=== PATIENT | male | born 1945 | race Hispanic/Latino ===

== ENCOUNTER 2017-12-21 14:32 | Observation (INO) | payer MEDICARE, BC ==
--- NOTE | 2017-12-21 15:26 | RAD ---
CHEST 1 VIEW: Date: 12/21/17 COMPARISON: 03/12/16. HISTORY: Pain. FINDINGS: Slight elongation of aorta. Normal cardiac silhouette. Pulmonary vessels and hilum are normal. Costop hrenic angles are clear. No masses or consolidation. No pneumothorax or osseous abnormalities. IMPRESSION: No acute cardiopulmonary process. POS: [facility]
[2017-12-21 15:34] LABS: #Eosinphils 0.1 thou/uL (0.0-0.7); #Lymphocytes 2.7 thou/uL (1.20-3.40); #Monocytes 0.9 thou/uL (0.11-0.59); #Neutrophils 4.5 thou/uL (1.40-6.50); %Basophils 0.5 % (0.0-1.0); %Eosinophils 1.5 % (0.0-10.0); %Lymphocytes 32.8 % (21.0-51.0); %Monocytes 10.3 % (0.0-10.0); %Neutrophils 54.9 % (42.0-75.0); Hemoglobin 14.6 g/dL (14.0-18.0); Mean Corpuscular HGB CONC 33.6 g/dL (32.0-36.0); Mean Corpuscular Hemoglobin 31.7 pg (27.0-31.0); Mean Corpuscular Volume 94.5 fL (78.0-98.0); Mean Platelet Volume 7.4 fL (7.4-10.4); Platelet Count 257 thou/uL (130-400); RBC Distribution Width 11.8 % (11.5-14.5); Red Blood Cell (RBC) Count 4.62 mill/uL (4.70-6.10); White Blood Cell (WBC) Count 8.2 thou/uL (4.8-10.8)
[2017-12-21 16:00] LABS: ALT (SGPT) 20 U/L (8-55); AST (SGOT) 20 U/L (5-34); Albumin 4.6 g/dL (3.4-4.8); Alkaline Phosphatase 73 U/L (40-150); Anion Gap 12 mmol/L (10-20); BUN (Urea Nitrogen) 15 mg/dL (8.4-25.7); Bilirubin, Total 0.9 mg/dL (0.2-1.2); CK (CPK) 116 U/L (30-200); Calc. Creatinine Clearance 0 mL/min (70-130); Calcium 10.2 mg/dL (7.8-10.44); Carbon Dioxide 32 mmol/L (23-31); Chloride 99 mmol/L (98-107); Estimated GFR-MDRD 72; Globulin 2.8 g/dL (2.4-3.5); Glucose 86 mg/dL (80-115); Lipase 41 U/L (8-78); Potassium 3.8 mmol/L (3.5-5.1); Protein, Total 7.4 g/dL (5.8-8.1); Sodium 139 mmol/L (136-145)
[2017-12-21 16:02] LABS: CKMB 1.1 ng/mL (0-6.6); Troponin I Less than 0.010 ng/mL (< 0.028)
[2017-12-21] MEDS ORDERED: Ondansetron PF 4 MG/2 ML Vial IVP PRN ×2 (17:02)
[2017-12-21] MEDS ORDERED: Bisacodyl 5 MG TAB PO PRN ×2 (17:02)
[2017-12-21] MEDS ORDERED: Acetaminophen 500 MG TAB PO PRN (17:02)
[2017-12-21] MEDS ORDERED: Acetaminophen 325 MG TAB PO PRN (17:02)
[2017-12-21] MEDS ORDERED: Nitroglycerin 0.4 MG TAB (25 Tab Bottle) SL PRN (17:02)
[2017-12-21] MEDS ORDERED: Benzonatate 100 MG CAP PO PRN (17:02)
[2017-12-21] MEDS ORDERED: HYDROcodone/Acetaminophen 5/325 mg Tablet PO PRN (17:02)
[2017-12-21] MEDS ORDERED: cloNIDine 0.1 MG TAB PO PRN (17:02)
[2017-12-21] MEDS ORDERED: Bisacodyl 10 MG SUPP PR PRN (17:02)
[2017-12-21] MEDS ORDERED: hydrALAZINE 20 MG/ML VIAL SLOW IVP PRN (17:02)
[2017-12-21] MEDS ORDERED: Diabetic Tussin 200 MG/10 ML UDCUP PO PRN (17:02)
[2017-12-21] MEDS ORDERED: Senokot S 8.6-50 MG TAB PO PRN ×2 (17:02)
[2017-12-21] MEDS ORDERED: Enoxaparin Sodium 80 MG/0.8 ML SYRINGE ONE (17:41)
[2017-12-21 19:42] LABS: Troponin I Less than 0.010 ng/mL (< 0.028)
[2017-12-21 20:42] VITALS: BMI 29.5
[2017-12-21] MEDS: Famotidine 20 MG TAB PO SCH (21:15)
[2017-12-21] MEDS ORDERED: Linaclotide [Linzess] 145 MCG PO PRN (21:26)
[2017-12-21 21:29] LABS: Troponin I Less than 0.010 ng/mL (< 0.028)
[2017-12-21] MEDS ORDERED: Dextrose 50% Abboject 50 ML SYRINGE SLOW IVP PRN (21:33)
[2017-12-21] MEDS ORDERED: Dextrose 5% in Water 1,000 ML IV PRN (21:33)
[2017-12-21] MEDS ORDERED: HumaLOG 300 UNITS/3 ML VIAL SC PRN ×2 (21:33)
--- NOTE | 2017-12-21 22:49 | HP ---
DATE OF ADMISSION: 12/21/2017 PRIMARY CARE PHYSICIAN: Joann Rosenberg. CHIEF COMPLAINT: Chest pain. HISTORY OF PRESENT ILLNESS: Mr. Hood is a very pleasant 72-year-old male with history of pitt ry artery disease, status post 1 stent in 2016, who presented to the emergency room with complaints o f chest pressure for 2 days. History is mainly obtained by the patient himself and electronic medica l records have been reviewed. This has been discussed with admitting ER physician. Mr. Hood' reports that for the last 2 days, he has been having on and off sharp chest pain, loca angely on both sides of the sternum in the lower region associated with some shortness of breath and pal pitation and diaphoresis as well as dizziness. He is compliant with his medication, but he missed hi s last appointment with his finishing pan operator, Dr. Olsen. He denies any recent illnesses. He denies a ny excessive shortness of breath or dyspnea on exertion. Denies any orthopnea or PND. In the emergency room upon presentation, he was hemodynamically stable. His blood pressure was 126/8 0 with a pulse of 64, saturating 98% on room air. Physical examination was unremarkable. A 12-lead EKG was within normal limits. Chest x-ray was negative for any acute changes. His cardiac enzyme wa s checked and CK-MB and troponin were unremarkable as well as a normal BNP. He did have an elevated D-dimer 0.52, but because he has an IODINE allergy, a CT angio could not be ordered. Instead, he was given a therapeutic dose of Lovenox at 80 mg x1 and is now being admitted for further workup of his chest pain. The patient has had a negative stress test in 03/2016 at which time he has also presented with chest pain. PAST MEDICAL HISTORY: 1. Coronary artery disease, status post stenting in 2017. 2. History of H. pylori gastritis. 3. Hypertension. 4. Dyslipidemia. 5. Diabetes, on oral hypoglycemics. 6. Gastroesophageal reflux disease. PAST SURGICAL HISTORY: 1. Back surgery. 2. Stent placement. PSYCHIATRIC HISTORY: No anxiety, no depression. SOCIAL HISTORY: He denies any drug, tobacco, or alcohol abuse. Lives with his . CODE STATUS: FULL CODE. We have discussed with the patient. ALLERGIES: IODINE. FAMILY HISTORY: Significant for hypertension in both his parents. His father also had heart trouble in his 70s. HOME MEDICATIONS: As follows, aspirin 325 mg daily, latanoprost eyedrops at bedtime, fluticasone 2 s prays daily, atorvastatin 80 mg daily, Toprol-XL 100 mg daily, Linzess 145 mcg daily a.c. p.r.n., gilmar glitazone/metformin 15/850 p.o. b.i.d., and Viagra 100 mg p.r.n. REVIEW OF SYSTEMS: A 12-point review of systems was done and is negative except for those mentioned in the history and physical. LABORATORY AND DIAGNOSTIC DATA: CBC is unremarkable. D-dimer 0.52. Serum chemistries unremarkable. Cardiac enzymes, troponin less than 0.010 x2, CK-MB normal at 1.1. Creatine kinase total normal at 116. BNP at 38. Lipase normal. Chest x-ray by my review has no evidence to suggest pleural effusi on, edema, or infiltrate. Twelve lead EKG by my review shows normal sinus rhythm without any acute S T or T-wave changes. No arrhythmia was noticed. PHYSICAL EXAMINATION: VITAL SIGNS: Upon presentation, heart rate 86, blood pressure 126/80, respirations 16, saturating 98 % on room air, temperature 97.8. GENERAL: No acute distress, awake, alert, oriented x3. HEENT: Mucous membrane is moist and pink. No oropharyngeal exudate or erythema. Head is normocepha lic, atraumatic. Pupils are equal, reactive to light and accommodation. Extraocular movements are intact. NECK: Supple without any lymphadenopathy, JVD or bruit. CHEST: Clear to auscultation without any wheezing, rales, or rhonchi. CARDIOVASCULAR: Rate and rhythm are regular without any murmur, rubs, or gallops. ABDOMEN: Soft, nontender, nondistended, positive bowel sounds. EXTREMITIES: Free of any cyanosis, clubbing, or edema. NEUROLOGIC: Nonfocal. SKIN: Free of any new rashes or bruises. Feel warm and dry to touch. PSYCHIATRIC: Normal affect. IMPRESSION AND PLAN: 1. Chest pain, etiology unclear at this time, but acute coronary syndrome will definitely need to be rule out and the patient with history of coronary artery disease and stenting. His symptoms are torri te concerning for acute coronary syndrome. We will obtain nuclear medicine stress test as cardiac en zymes are unremarkable with a normal EKG. We will consult his finishing pan operator, Dr. Olsen in the morn ing. Also given his elevated D-dimer, VQ scan will be done. The patient is IODINE allergy, so canno t undergo CT angio. He has already received a dose of Lovenox at therapeutic levels and we will hold off on further dosing for now. Continue with aspirin and beta dexter at this time. The patient re ports that he was taken off the Plavix after being on it for sometime. He will be admitted to teleme try unit currently under observation status. 2. Diabetes mellitus, diet controlled. We will resume his home medication and add insulin sliding s marvin for better control. Avoid hypoglycemia as the patient most likely will be n.p.o. after midnight for cardiology evaluation in case he needs cardiac catheterization. 3. History of coronary artery disease, status post stenting. Continue aspirin, statin, and beta-blo cker for now. 4. History of gastroesophageal reflux disease. The patient's symptoms can be secondary to gastritis . He has history of Helicobacter pylori gastritis and reports that his symptoms are well controlled with Zantac. We will continue with Pepcid b.i.d. while he is in the hospital for now. 5. Code status: FULL CODE. Discussed with the patient. 6. Deep venous thrombosis and gastrointestinal prophylaxis and p.r.n. medication orders. 7. History of hypertension, currently controlled. We will add home medications and put him on p.r.n . medications as well. DISPOSITION: Mr. Hood is currently being admitted under observation status to rule out ACS. Fu rther management will depend upon his clinical course.
[2017-12-22 05:38] LABS: #Eosinphils 0.2 thou/uL (0.0-0.7); #Lymphocytes 2.4 thou/uL (1.20-3.40); #Monocytes 0.7 thou/uL (0.11-0.59); #Neutrophils 3.3 thou/uL (1.40-6.50); %Basophils 0.5 % (0.0-1.0); %Eosinophils 3.5 % (0.0-10.0); %Lymphocytes 35.3 % (21.0-51.0); %Monocytes 10.7 % (0.0-10.0); %Neutrophils 49.9 % (42.0-75.0); Hemoglobin 12.5 g/dL (14.0-18.0); Mean Corpuscular HGB CONC 32.1 g/dL (32.0-36.0); Mean Corpuscular Hemoglobin 30.5 pg (27.0-31.0); Mean Corpuscular Volume 95.1 fL (78.0-98.0); Mean Platelet Volume 7.6 fL (7.4-10.4); Platelet Count 233 thou/uL (130-400); RBC Distribution Width 11.8 % (11.5-14.5); Red Blood Cell (RBC) Count 4.09 mill/uL (4.70-6.10); White Blood Cell (WBC) Count 6.7 thou/uL (4.8-10.8)
[2017-12-22 06:13] LABS: Anion Gap 11 mmol/L (10-20); BUN (Urea Nitrogen) 13 mg/dL (8.4-25.7); Calc. Creatinine Clearance 87 mL/min (70-130); Calcium 9.3 mg/dL (7.8-10.44); Carbon Dioxide 31 mmol/L (23-31); Chloride 102 mmol/L (98-107); Estimated GFR-MDRD 87; Glucose 92 mg/dL (80-115); Potassium 3.6 mmol/L (3.5-5.1); Sodium 140 mmol/L (136-145)
[2017-12-22] MEDS ORDERED: METFORMIN HCL PO SCH (08:00)
[2017-12-22] MEDS ORDERED: PIOGLITAZONE HCL PO SCH (08:00)
[2017-12-22] MEDS ORDERED: [UNRECOGNIZED DRUG - OTHER] PO SCH (08:00)
[2017-12-22] MEDS: Pioglitazone HCl 15 MG TAB PO SCH ×3 (08:30→11:02)
[2017-12-22] MEDS: metFORMIN 850 MG TAB PO SCH ×3 (08:30→11:02)
[2017-12-22] MEDS ORDERED: Enoxaparin Sodium 40 MG/0.4 ML SYRINGE SC SCH (09:00)
[2017-12-22] MEDS ORDERED: Aspirin 325 mg Enteric Coated Tablet PO SCH (09:00)
[2017-12-22] MEDS ORDERED: Fluticasone Propionate Nasal Spray 16 gm Bottle NASAL SCH (09:00)
[2017-12-22] MEDS ORDERED: ADENOSINE 60 MG/20 ML VIAL ONE (10:39)
[2017-12-22] MEDS: Famotidine 20 MG TAB PO SCH (10:57)
[2017-12-22 11:26] VITALS: BP 129/55; TEMP 98
--- NOTE | 2017-12-22 12:07 | NM ---
RADIONUCLIDE STRESS REST MYOCARDIAL PERFUSION SCAN WITH CT ATTENUATION CORRECTION AND SPECT IMAGING LEFT VENTRICULAR WALL MOTION EVALUAITON AND EJECTION FRACTION: History: Chest pain FINDINGS: Adenosine protocol. There is homogeneous uptake of radiotracer throughout the left ventricular myocar dium. No focal perfusion defect or reversibility. QGS analysis of gated SPECT images shows no focal w all motion abnormalities. Ejection fraction calculated at 56%. IMPRESSION: Normal myocardium perfusion scan. Normal LVEF. POS: [facility]
[2017-12-22] MEDS ORDERED: Latanoprost 0.005% Ophth Soln 2.5 ml Bottle EA EYE SCH (21:00)
[2017-12-22] MEDS ORDERED: Atorvastatin Calcium 40 MG TAB PO SCH (21:00)
--- NOTE | 2017-12-23 00:21 | DIS ---
DATE OF ADMISSION: 12/21/2017 DATE OF DISCHARGE: 12/22/2017 PRIMARY CARE PHYSICIAN: Joann Rosenberg PA-C CODE STATUS: Full. DISCHARGE DIAGNOSES: 1. Coronary artery disease with a negative stress test. 2. Diabetes mellitus 2. 3. Gastroesophageal reflux disease. PROCEDURES: A chest x-ray, which showed no acute process. Nuclear stress test which was negative with a 56% ejection fraction. REVIEW OF SYSTEMS: The patient was seen by me on discharge and denying any complaints. PHYSICAL EXAMINATION: VITAL SIGNS: Temperature 97.5, pulse 57, respirations 16, blood pressure 136/ 61. GENERAL: No acute distress. He is awake, alert, and oriented x3. HEENT: Mucous membranes are moist and pink. Head is normocephalic, atraumatic. Pupils are equal, reactive to light. Extraocular movements are intact. NECK: Supple, with no lymphadenopathy, JVD or bruit. CHEST: Clear to auscultation without any wheezing, rales or rhonchi. CARDIOVASCULAR: Regular without any murmur, rubs or gallops. ABDOMEN: Soft, nontender, nondistended. Positive bowel sounds. EXTREMITIES: Free of any cyanosis, clubbing, or edema. NEUROLOGIC: Nonfocal sensation. Pulses are intact to all four extremities. SKIN: Warm, dry, and intact. Denies no rashes or bruises seen. PSYCHIATRIC: Normal affect. HOSPITAL COURSE: This is a pleasant 72-year-old male who presented to the ED yesterday complaining of 2 days of chest pressure and sharp pain in the substernal region. The patient has a history of CAD with 1 stent placed in 2017. Patient reported at that time that the chest pain was associated with dizziness, palpitations or shortness of breath. Currently, when examined this morning, the patient denies any current chest pain, dizziness, palpitations or shortness of breath. Initially while in the ED, patient had a slightly elevated D-dimer and had a VQ scan ordered. The patient is currently asymptomatic, and has denied SOB during hospitalization. Dr. Bro and I discussed need for VQ scan and it was felt it could be deferred for now. The patient has remained stable. He denies any chest pain after the stress test and is anxious to return home. ALLERGIES: He has no allergies to any medications. MEDICATIONS: He will be discharged on his home medications, which includes aspirin 325 mg p.o. daily, atorvastatin 80 mg p.o. at bedtime, Flonase 2 sprays to each naris b.i.d., Latanoprost 0.05% 1 drop each eye at bedtime, Linzess 145 mcg p.o. daily, Toprol-XL 100 mg p.o. daily., pioglitazone and metformin at 15 mg/850 mg p.o. b.i.d. and Viagra 100 mg p.o. daily as needed. Discharge condition is stable. The patient will return home via private vehicle. FOLLOWUP: The patient will need to follow up with Joann Rosenberg PA-C PCP within 1 week and follow up with Dr. Olsen within the next 2 weeks. PEDROD
--- NOTE | 2017-12-25 13:10 | STRESS ---
Acquisition Time: 2017-12-22 08:58:08 Total Exercise Time: 00:04:00 Test Indications: CP, CAD Medications: Protocol: ADENOSINE Max HR: 086 BPM 57% of Pred: 150 BPM Max BP: 136/072 mmHG Max Work Load: 1.0 METS RESTING ECG: NORMAL SINUS RHYTHM AT 65 BPM SYMPTOMS: SHORTNESS OF BREATH NORMAL BP RESPONSE ECTOPY: NONE ECG STRESS: NO SIGNIFICANT CHANGES INTERPRETATION: AWAIT NUCLEAR IMAGES FOR DEFINITIVE DIAGNOSIS Confirmed by SUDARSHAN MCCARTHY ([id number]), assistant editor STEPHY REIS ([id number]) on 12/25/2017 1:10:00 PM Referred By: MD Jonatan LEVINE Confirmed By:SUDARSHAN MCCARTHY
--- NOTE | 2017-12-26 11:22 | EKG ---
Test Reason : Blood Pressure : / mmHG Vent. Rate : 064 BPM Atrial Rate : 064 BPM P-R Int : 172 ms QRS Dur : 090 ms QT Int : 406 ms P-R-T Axes : 009 -13 022 degrees QTc Int : 418 ms Normal sinus rhythm Normal ECG Confirmed by KATHY RIVERO, BIGG ([id number]), videotape editor GABBI HANSON ([id number]) on 12/26/2017 11:21:46 AM Referred By: Confirmed By:BIGG CHAVEZ MD
== END 2017-12-22 14:35 | disposition home or self-care (01) ==
LOC: ERS 14:32 → ERHOLD 18:03 → 2SW 20:37
PROVIDERS: ADMIT Internal Medicine; ATTEND Internal Medicine
DX: R07.9 Chest pain, unspecified (principal); I25.10 Atherosclerotic heart disease of native coronary artery without angina pectoris; E11.9 Type 2 diabetes mellitus without complications; K21.9 Gastro-esophageal reflux disease without esophagitis; Z79.899 Other long term (current) drug therapy
CPT/HCPCS: 71045; 78452; 80048; 80053 ×2; 80061; 82550; 82553; 82962 ×2; 83690; 83880; 84484 ×2; 85025 ×2; 85379; 93005; 93017; 96360; 96372; 97139; 99285; A9500; G0378 ×2; 36415; 36416; J0153; J1650

== ENCOUNTER 2019-06-18 11:52 | Emergency (ER) | payer MEDICARE, BC, OTHER ==
[2019-06-18 12:59] LABS: #Eosinphils 0.1 thou/uL (0.0-0.7); #Lymphocytes 2.2 thou/uL (1.20-3.40); #Monocytes 0.7 thou/uL (0.11-0.59); #Neutrophils 4.3 thou/uL (1.40-6.50); %Basophils 0.1 % (0.0-1.0); %Eosinophils 1.6 % (0.0-10.0); %Lymphocytes 30.4 % (21.0-51.0); %Monocytes 9.1 % (0.0-10.0); %Neutrophils 58.9 % (42.0-75.0); Mean Corpuscular HGB CONC 33.4 g/dL (32.0-36.0); Mean Corpuscular Hemoglobin 31.8 pg (27.0-31.0); Mean Corpuscular Volume 95.2 fL (78.0-98.0); Mean Platelet Volume 7.6 fL (7.4-10.4); Platelet Count 257 thou/uL (130-400); RBC Distribution Width 11.5 % (11.5-14.5); Red Blood Cell (RBC) Count 4.42 mill/uL (4.70-6.10); White Blood Cell (WBC) Count 7.3 thou/uL (4.8-10.8)
--- NOTE | 2019-06-18 13:18 | RAD ---
CHEST ONE VIEW PORTABLE: History: Shortness of breath Comparison: 12-21-17 FINDINGS: Heart size is within normal limits. The lungs are clear. No confluent pneumonia, overt edema, or pleu ral effusion. IMPRESSION: No significant acute intrathoracic disease. Stable from 12-21-17. POS: [facility]
[2019-06-18 13:21] LABS: ALT (SGPT) 33 U/L (8-55); AST (SGOT) 24 U/L (5-34); Albumin 4.5 g/dL (3.4-4.8); Alkaline Phosphatase 69 U/L (40-110); Anion Gap 14 mmol/L (10-20); BUN (Urea Nitrogen) 11 mg/dL (8.4-25.7); Bilirubin, Total 0.6 mg/dL (0.2-1.2); Calc. Creatinine Clearance 0 mL/min (70-130); Calcium 9.7 mg/dL (7.8-10.44); Carbon Dioxide 29 mmol/L (23-31); Chloride 99 mmol/L (98-107); Estimated GFR-MDRD 83; Globulin 2.6 g/dL (2.4-3.5); Glucose 159 mg/dL (83-110); Potassium 4.1 mmol/L (3.5-5.1); Protein, Total 7.1 g/dL (5.8-8.1); Sodium 138 mmol/L (136-145)
[2019-06-18 16:05] LABS: Troponin I Less than 0.010 ng/mL (< 0.028)
== END 2019-06-18 16:30 | disposition short-term general hospital (02) ==
LOC: ERS 11:52
DX: R06.02 Shortness of breath (principal); Z20.828 Contact with and (suspected) exposure to other viral communicable diseases; E11.9 Type 2 diabetes mellitus without complications; I10 Essential (primary) hypertension
CPT/HCPCS: 71045; 80053; 83880; 84484 ×2; 85025; 93005; 99285; U0002; 36415; 87635; U0003

== ENCOUNTER 2019-09-06 11:38 | Emergency (ER) | payer MEDICARE, BC, OTHER ==
[2019-09-07 12:50] LABS: SARS-CoV-2 MS2 Positive; SARS-CoV-2 N Gene Positive; SARS-CoV-2 S Gene Positive; SARS-CoV-2 orf1ab Positive
== END 2019-09-06 13:22 | disposition home or self-care (01) ==
LOC: ERS 11:38
DX: U07.1 COVID-19 (principal); E11.9 Type 2 diabetes mellitus without complications; I10 Essential (primary) hypertension
CPT/HCPCS: 99283; U0003; 87635

== ENCOUNTER 2019-09-08 11:59 | Emergency (ER) | payer MEDICARE, BC, OTHER ==
[2019-09-08] MEDS ORDERED: Dexamethasone 10 MG/ML VIAL ONE (12:51)
--- NOTE | 2019-09-08 12:54 | RAD ---
Portable frontal chest radiograph: 09/18/2019 COMPARISON: 06/18/2019 HISTORY: Cough, chest pain, chills, possible Covid FINDINGS: Lungs are clear. Heart and mediastinal contours appear within normal limits. IMPRESSION: No acute findings. If there is continued clinical concern for Covid pneumonia, follow-up chest x-ray or CT suggested.
== END 2019-09-08 14:32 | disposition home or self-care (01) ==
LOC: ERS 11:59
DX: U07.1 COVID-19 (principal); B37.42 Candidal balanitis; E11.9 Type 2 diabetes mellitus without complications; I10 Essential (primary) hypertension
CPT/HCPCS: 36416; 71045; J1100

== ENCOUNTER 2019-11-21 07:39 | Outpatient (CLI) | payer MEDICARE, BC ==
--- NOTE | 2019-11-21 08:01 | ULT ---
Exam: Abdominal aortic ultrasound HISTORY: Evaluate for aneurysm TECHNIQUE: Grayscale, color flow, Doppler imaging and spectral waveform analysis of the aorta FINDINGS: Proximal aorta cannot be assessed due to bowel gas Mid aorta: 1.6 cm Distal aorta 1.4 cm IMPRESSION: No evidence of aneurysm the visualized mid and distal abdominal aorta.
== END 2019-11-21 07:40 | disposition home or self-care (01) ==
LOC: BICULT 07:39
PROVIDERS: ATTEND Physician Assistant
DX: Z13.6 Encounter for screening for cardiovascular disorders (principal)
CPT/HCPCS: 36415; 76775; 80053; 80061

== ENCOUNTER 2019-11-28 14:52 | Outpatient (CLI) | payer MEDICARE, BC ==
--- NOTE | 2019-11-28 15:19 | ULT ---
Carotid duplex sonogram HISTORY: Headache. Vascular disease. FINDINGS: Right: Mild plaque near the bifurcation. Color and spectral Doppler evaluation, peak systolic velocit y of 87 cm/s, and IC to CC ratio 0.7 suggest no hemodynamically significant stenosis within the extracranial right ICA. Antegrade flow within the vertebral artery. Left: Mild plaque. Color and spectral Doppler evaluation, peak systolic velocity of 88 cm/s, and IC t o CC ratio 0.7 suggest no hemodynamically significant stenosis within the extracranial left ICA. Antegrade flow within the vertebral artery. IMPRESSION : Mild atherosclerotic plaque. No sonographic evidence of significant extracranial ICA stenosis.
== END 2019-11-28 14:53 | disposition home or self-care (01) ==
LOC: BICULT 14:52
PROVIDERS: ATTEND Internal Medicine Cardiovascular Disease
DX: I25.10 Atherosclerotic heart disease of native coronary artery without angina pectoris (principal)
CPT/HCPCS: 93880

== ENCOUNTER 2020-07-02 13:54 | Emergency (ER) | payer MEDICARE, BC ==
[2020-07-02 14:19] LABS: #Basophils 0.1 thou/uL (0.0-0.2); #Eosinphils 0.3 thou/uL (0.0-0.7); #Lymphocytes 3.1 thou/uL (1.20-3.40); #Neutrophils 8.1 thou/uL (1.40-6.50); %Basophils 0.6 % (0.0-1.0); %Eosinophils 2.6 % (0.0-10.0); %Lymphocytes 24.7 % (21.0-51.0); %Monocytes 7.9 % (0.0-10.0); %Neutrophils 64.2 % (42.0-75.0); Hemoglobin 13.2 g/dL (14.0-18.0); Mean Corpuscular HGB CONC 33.2 g/dL (32.0-36.0); Mean Corpuscular Volume 96.3 fL (78.0-98.0); Mean Platelet Volume 7.1 fL (7.4-10.4); Platelet Count 271 thou/uL (130-400); RBC Distribution Width 11.6 % (11.5-14.5); Red Blood Cell (RBC) Count 4.12 mill/uL (4.70-6.10); White Blood Cell (WBC) Count 12.6 thou/uL (4.8-10.8)
[2020-07-02 14:45] LABS: ALT (SGPT) 27 U/L (8-55); AST (SGOT) 20 U/L (5-34); Albumin 3.9 g/dL (3.4-4.8); Alkaline Phosphatase 82 U/L (40-110); Anion Gap 11 mmol/L (10-20); BUN (Urea Nitrogen) 14 mg/dL (8.4-25.7); Bilirubin, Total 0.6 mg/dL (0.2-1.2); Calc. Creatinine Clearance 0 mL/min (70-130); Calcium 9.4 mg/dL (7.8-10.44); Carbon Dioxide 29 mmol/L (23-31); Chloride 99 mmol/L (98-107); Globulin 2.7 g/dL (2.4-3.5); Glucose 141 mg/dL (83-110); Potassium 4.1 mmol/L (3.5-5.1); Protein, Total 6.6 g/dL (5.8-8.1); Sodium 135 mmol/L (136-145)
[2020-07-02 17:34] LABS: Anion Gap 13 mmol/L (10-20); BUN (Urea Nitrogen) 15 mg/dL (8.4-25.7); Bilirubin, Total 0.6 mg/dL (0.2-1.2); Calc. Creatinine Clearance 0 mL/min (70-130); Calcium 9.1 mg/dL (7.8-10.44); Carbon Dioxide 27 mmol/L (23-31); Chloride 97 mmol/L (98-107); Glucose 145 mg/dL (83-110); Potassium 4.2 mmol/L (3.5-5.1); Sodium 133 mmol/L (136-145)
[2020-07-02 17:35] LABS: ALT (SGPT) 27 U/L (8-55); AST (SGOT) 19 U/L (5-34); Albumin 3.8 g/dL (3.4-4.8); Alkaline Phosphatase 75 U/L (40-110); Globulin 2.6 g/dL (2.4-3.5); Protein, Total 6.4 g/dL (5.8-8.1)
== END 2020-07-02 18:11 | disposition home or self-care (01) ==
LOC: ERS 13:54
DX: K52.9 Noninfective gastroenteritis and colitis, unspecified (principal); Z79.899 Other long term (current) drug therapy; Z79.84 Long term (current) use of oral hypoglycemic drugs; E11.9 Type 2 diabetes mellitus without complications; I10 Essential (primary) hypertension
CPT/HCPCS: 36415; 80053; 84484; 85025; 93005

== ENCOUNTER 2021-03-15 11:06 | Outpatient (CLI) | payer MEDICARE, BC | END 2021-03-15 11:07 | disposition home or self-care (01) | LOC: RAD 11:06 | PROVIDERS: ATTEND Physician Assistant | DX: M54.16 Radiculopathy, lumbar region (principal); M47.817 Spondylosis without myelopathy or radiculopathy, lumbosacral region; M43.17 Spondylolisthesis, lumbosacral region | CPT/HCPCS: 72100 ==

== ENCOUNTER 2021-07-18 12:31 | Outpatient (CLI) | payer MEDICARE, BC | END 2021-07-18 12:32 | disposition home or self-care (01) | LOC: BICMRI 12:31 | PROVIDERS: ATTEND Orthopaedic Surgery | DX: M51.17 Intervertebral disc disorders with radiculopathy, lumbosacral region (principal); M47.27 Other spondylosis with radiculopathy, lumbosacral region; M48.07 Spinal stenosis, lumbosacral region | CPT/HCPCS: 72148 ==

== ENCOUNTER 2022-02-26 10:58 | Emergency (ER) | payer MEDICARE, BC ==
[2022-02-26] MEDS ORDERED: Ketorolac Tromethamine 30 MG/ML VIAL ONE (13:00)
== END 2022-02-26 13:26 | disposition home or self-care (01) ==
LOC: ERS 10:58
DX: J06.9 Acute upper respiratory infection, unspecified (principal); Z20.822 Contact with and (suspected) exposure to COVID-19
CPT/HCPCS: U0003; U0005; 96372; 99283; J1885

== ENCOUNTER 2022-05-24 10:32 | Emergency (ER) | payer MEDICARE, BC ==
[2022-05-24 11:22] LABS: #Eosinphils 0.2 thou/uL (0.0-0.7); #Lymphocytes 2.3 thou/uL (1.20-3.40); #Monocytes 0.8 thou/uL (0.11-0.59); #Neutrophils 5.5 thou/uL (1.40-6.50); %Basophils 0.4 % (0.0-1.0); %Eosinophils 2.1 % (0.0-10.0); %Lymphocytes 26.2 % (21.0-51.0); %Monocytes 8.6 % (0.0-10.0); %Neutrophils 62.7 % (42.0-75.0); Hemoglobin 14.1 g/dL (14.0-18.0); Mean Corpuscular HGB CONC 34.5 g/dL (32.0-36.0); Mean Corpuscular Hemoglobin 33.2 pg (27.0-31.0); Mean Corpuscular Volume 96.4 fl (78.0-98.0); Mean Platelet Volume 7.4 fL (7.4-10.4); Platelet Count 273 10x3/uL (130-400); RBC Distribution Width 11.3 % (11.5-14.5); Red Blood Cell (RBC) Count 4.25 mill/uL (4.70-6.10); White Blood Cell (WBC) Count 8.8 10x3/uL (4.8-10.8)
[2022-05-24] MEDS ORDERED: traMADol HCl 50 MG TAB ONE (11:39)
[2022-05-24 11:44] LABS: ALT (SGPT) 31 U/L (8-55); AST (SGOT) 24 U/L (5-34); Albumin 4.2 g/dL (3.4-4.8); Alkaline Phosphatase 75 U/L (40-110); Anion Gap 13 mmol/L (10-20); BUN (Urea Nitrogen) 13 mg/dL (8.4-25.7); Bilirubin, Total 0.7 mg/dL (0.2-1.2); Calc. Creatinine Clearance 0 mL/min (70-130); Calcium 9.8 mg/dL (7.8-10.44); Carbon Dioxide 27 mmol/L (23-31); Chloride 100 mmol/L (98-107); Estimated GFR 71; Globulin 2.9 g/dL (2.4-3.5); Glucose 212 mg/dL (83-110); Potassium 4.2 mmol/L (3.5-5.1); Protein, Total 7.1 g/dL (5.8-8.1); Sodium 136 mmol/L (136-145)
[2022-05-24 12:31] LABS: SARS-CoV-2 NAA Rapid Test Not Detected (NotDetected)
[2022-05-24 12:57] LABS: Bilirubin Negative (Negative); Blood, Urine Negative (Negative); Clarity Clear (Clear); Glucose, Urine (Dipstick) Normal (Negative); Ketone, Urine Negative (Negative); Leukocyte Negative Leu/uL (Negative); Nitrite Negative (Negative); Protein, Urine (Dipstick) Negative (Neg-Trace); Specific Gravity, Urine 1.011 (1.002-1.036); Urobilinogen Normal mg/dL (Less than 2)
[2022-05-24] MEDS ORDERED: Meclizine HCl 25 MG TAB ONE (13:16)
== END 2022-05-24 14:56 | disposition home or self-care (01) ==
LOC: ERS 10:32
DX: R42 Dizziness and giddiness (principal); E78.5 Hyperlipidemia, unspecified; E11.9 Type 2 diabetes mellitus without complications; I10 Essential (primary) hypertension; Z87.891 Personal history of nicotine dependence; Z79.899 Other long term (current) drug therapy; Z79.84 Long term (current) use of oral hypoglycemic drugs; Z20.822 Contact with and (suspected) exposure to COVID-19
CPT/HCPCS: 0240U; 70450; 71045; 80053; 81003; 84484; 85025; 93005; 36415